=== PATIENT | male | born 1940 | race Caucasian/White ===

== ENCOUNTER → 2019-04-11 | Outpatient (CLI) | payer MEDICARE, OTHER ==
[~2019-04-11] MED LIST: AMLO10 PO; ASPI325EC PO; ASPIR 8181 MG PO; ATEN50; ATEN50 PO; ATOR40TA; BENA20 PO; BENAML20/5; Bumetanide1 MG PO; CELE200; CELE200 PO; CHOL10002 PO; DOCU100 PO; ENOX40I SC; HYDCHL25 PO; HYDMOR2 PO; LANS30EC; MULTIVITAMIN; NEBI10 PO; OMEP20ER PO; POTASSIUM CITR10 MEQ PO; ROSU10TA PO; VITAMIN D-32000 UNIT PO
[2019-04-11 15:40] LABS: Source, Urine Clean Catch
[2019-04-11 19:08] LABS: Bilirubin, Urine Neg (Neg); Blood, Urine 1+ (Neg); Glucose Qualitative, Urine Neg (Neg); Ketones, Urine Neg (Neg); Leukocyte Esterase, Urine Neg (Neg); Nitrite, Urine Neg (Neg); Protein, Urine 3+ (Neg); Urobilinogen, Urine NORM (Normal)
[2019-04-11 19:18] LABS: Appearance, Urine Clear (Clear); Color, Urine Yellow (P-Yellow)
[2019-04-11 19:21] LABS: Bacteria Rare /hpf; Red Blood Cells, Urine 0-2 /hpf (0-2); Squamous Epithelial Cells Rare /hpf (Few); White Blood Cells, Urine 0-2 /hpf (0-5)
== END | disposition home or self-care (01) ==
LOC: LAB 15:38 → LAB SHORT 15:38
PROVIDERS: Internal Medicine
DX: N39.0 Urinary tract infection, site not specified (principal)
CPT/HCPCS: 81001

== ENCOUNTER 2020-10-09 08:53 | Day surgery (SDC) | payer MEDICARE, OTHER ==
[~2020-10-09] VITALS: Ht 177.8 cm; Wt 92.0 kg
[~2020-10-09 08:53] MED LIST changes: +AMLODIPINE-BEN1 EAC5 PO; +Aspir 8181 MG PO; +BUME1 PO; +POTCIT10 PO; +VITAMIN D325 MC3 PO
--- NOTE | 2020-10-09 09:19 | NUR ---
10/09/20 0919 Westley Alvarenga CALL LIGHT WITHIN REACH
== END 2020-10-09 10:23 | disposition home or self-care (01) ==
LOC: ORSCSDS 08:53
PROVIDERS: Ophthalmology
PROC: 08RJ3JZ Replacement of Right Lens with Synthetic Substitute, Percutaneous Approach (ICD-10-PCS; principal; 2020-10-09 10:00)
DX: H25.11 Age-related nuclear cataract, right eye (principal); K21.9 Gastro-esophageal reflux disease without esophagitis; I10 Essential (primary) hypertension; Z87.891 Personal history of nicotine dependence; Z79.899 Other long term (current) drug therapy
CPT/HCPCS: J2001; J2250; J3010; J3301; J7040; V2632

== ENCOUNTER 2020-12-11 08:45 | Day surgery (SDC) | payer MEDICARE, OTHER ==
[~2020-12-11] VITALS: Ht 177.8 cm; Wt 93.8 kg
== END 2020-12-11 10:36 | disposition home or self-care (01) ==
LOC: ORSCSDS 08:45
PROVIDERS: Ophthalmology
PROC: 08RK3JZ Replacement of Left Lens with Synthetic Substitute, Percutaneous Approach (ICD-10-PCS; principal; 2020-12-11 10:00)
DX: H25.12 Age-related nuclear cataract, left eye (principal); I10 Essential (primary) hypertension; Z79.82 Long term (current) use of aspirin; Z79.899 Other long term (current) drug therapy
CPT/HCPCS: J2001; J2250; J3010; J3301; J7040; V2632

== ENCOUNTER 2022-12-02 05:52 | Day surgery (SDC) | payer MEDICARE, OTHER ==
[2022-12-02] VITALS (21 sets, daily range): BP systolic 101–153; BP diastolic 65–104
[~2022-12-02] VITALS: Ht 169 cm; Wt 85.8 kg
[~2022-12-02 05:52] MED LIST changes: +AMLODIPINE BES2.5 MG PO; +BENAZEPRIL HCL40 M1 PO; +CELE100 PO
[2022-12-02] MEDS ORDERED: HYDROCODONE-AC1 EA19 PO (06:57)
--- NOTE | 2022-12-02 07:43 | NUR ---
History, Chart, Medications and Allergies reviewed before start of procedure. Pre-Op teaching done. Pt verbalizes understanding. Patient confirms NPO status and agrees with scheduled surgery. Patient reports completing Chlorhexadine shower X2 prior to admission to hospital. Lungs clear T/O to Auscultation. Surgical site prepped with 2% Chlorhexidine cloth wipe. Patient States Post-Procedure ride home has been arranged.
--- NOTE | 2022-12-02 08:38 | NUR ---
12/02/22 0838 Liz Gaspar PRIOR TO ARRIVING IN THE OR PATIENT RECEIVED VANCO 1GM IV IN THE PREOP SETTING.
--- NOTE | 2022-12-02 14:26 | NUR ---
Pt. is awake and sitting in a recliner when he welcomes my visit. Pt. is pleasant and rapport is quickly established. Facilitated a life review. Pt. verbalizes much family loss in the past 4 years. Listen with empathy and a calming presence. Bereavement support is given. Pt. displays some evidence of emotion. Prayed for the Pt. Pt. verbalized gratitude for the spiritual care visit.
--- NOTE | 2022-12-02 15:07 | NUR ---
ADMIT/SHIFT SUMMARY NEW ADMIT TO UNIT FROM PACU POD [address] NUR. ALERT, ORIENTED, PLEASANT, COOPERATIVE, [place]. POST OP VSS, SOME BRADYCARDIA NOTED AT TIMES INTO 40'S, ASYMPTOMATIC. TOLERATING REG LUNCH AND FLUIDS. PAIN CONTROLLED WITH SCHEDULED MEDS, RATES PAIN 2/10 AT THIS TIME. AMBULATES SBA WITH FWW AND GAIT BELT IN HALLS. WORKED WITH PHYSICAL THERAPY. GAUZE AND TAPE DRESSING TO RIGHT HIP AND LOWER THIGH C/D/I. REPORT GIVEN TO IRAM DANIEL RN.
--- NOTE | 2022-12-02 15:14 | NUR ---
THIS NURSE IS TAKING OVER CARE FROM PAU CALDERON. AFTER REPORT THIS NURSE HAD NO FURTHER QUESTIONS AT THIS TIME.
--- NOTE | 2022-12-02 19:47 | NUR ---
EDUCATION PATIENT EDUCATED ABOUT THE DANGERS OF AMBULATING INDEPENDENTLY POST OP, DUE TO THE PATIENT AMBULATING INDEPENDENTLY. THE PATIENT VERBALIZED MISUNDERSTANDING AND UNWILLINGNESS TO COMPLY, BUT THEN VERBALIZED UNDERSTANDING THAT THERE ARE LIMITATION POST OP IN THE HOSPITAL FOR SAFETY. PATIENT REEDUCATED ABOUT CALL LIGHT USE AND HOW TO CALL FOR ASSITANCE IF THE BATHROOM IS NEEDED, OR OTHER NEEDS. PATIENT EDUCATED ABOUT RISK OF REQUIRING ANOTHER SURGERY TO REPAIR HIP IF A FALL OCCURS. WALKER MOVED OUT OF PATIENT REACH AT THIS TIME AND CALL LIGHT PLACED NEXT TO THE PATIENT.
[2022-12-03 04:53] VITALS: BP 117/62
--- NOTE | 2022-12-03 04:55 | NUR ---
SHIFT SUMMARY POD 1 R POSTERIOR SACHIN. NO ACUTE CHNAGES OVERNIGHT. VS WNL FOR PT. GAUZE DRESSING C/D/I. TOLERATING ORALS. PT AMBULATES WITH FWW c SBA, PT CAN BE ENTHUSIASTIC AT TIMES WHEN AMBULATING. PT SLEPT THROUGHOUT MOST OF THE NIGHT. ANTICIPATED DISCHARGE LATER TODAY. CALL LIGHT WITHIN REACH, BED IN LOWEST POSITION, WILL REPORT TO DAY RN.
[2022-12-03 05:06] LABS: BASOPHILS ABSOLUTE AUTO 0.02 K/mm3 (0.00-0.23); BASOPHILS PERCENT AUTO 0 % (0-2); EOSINOPHILS PERCENT AUTO 0 % (0-6); Hematocrit 34.3 % (37.0-53.0); Hemoglobin 11.4 g/dL (13.5-17.5); IMMATURE GRAN ABSOLUTE AUTO 0.06 K/mm3 (0.00-0.10); IMMATURE GRAN PERCENT AUTO 1 % (0-1); LYMPHOCYTES ABSOLUTE AUTO 1.44 K/mm3 (0.84-5.20); LYMPHOCYTES PERCENT AUTO 12 % (21-46); MONOCYTES ABSOLUTE AUTO 1.47 K/mm3 (0.16-1.47); MONOCYTES PERCENT AUTO 12 % (4-13); Mean Corpuscular HGB 29.4 pg (26.0-34.0); Mean Corpuscular HGB Conc 33.2 g/dL (31.5-36.5); Mean Corpuscular Volume 88 fL (80-100); Mean Platelet Volume 9.8 fL (9.1-12.4); NEUTROPHILS ABSOLUTE AUTO 9.09 K/mm3 (1.96-9.15); NEUTROPHILS PERCENT AUTO 75 % (41-73); Platelet Count 185 K/mm3 (150-400); RDW Coefficient Variation 13.2 % (11.7-14.2); RDW Standard Deviation 43.1 fL (35.1-46.3); Red Blood Cell Count 3.88 M/mm3 (4.30-5.90); White Blood Cell Count 12.08 K/mm3 (4.00-11.30)
[2022-12-03 05:39] LABS: Bun/Creatinine Ratio 19.4 (12.0-20.0); Calcium, Blood 8.4 mg/dL (8.5-10.1); Creatinine, Blood 1.08 mg/dL (0.60-1.20); Magnesium, Blood 1.8 mg/dL (1.6-2.4); Potassium, Blood 3.9 mmol/L (3.5-5.5)
[2022-12-03 07:33] VITALS: BP 125/78
[2022-12-03 09:08] VITALS: BP 150/86
[2022-12-03] MEDS ORDERED: Aspir 8181 MG PO (10:37)
[2022-12-03] MEDS ORDERED: SULTRIDS PO (10:38)
[2022-12-03] MEDS ORDERED: PROM25 PO (10:38)
--- NOTE | 2022-12-03 11:43 | NUR ---
DISCHARGE SUMMARY POD1 R TOTAL HIP- AQUACEL DRESSINGS X3 C/D/I. AMBULATING WELL W/ SBA FWW AND GB. VITAL SIGNS STABLE. VOIDING WELL. TOLERATING PO INTAKE. PAIN MANAGED W/ PO PAIN MEDICATION. PT/OT AGREEABLE TO DISCHARGE PATIENT. WRITTEN AND VERBAL DISCHARGE INSTRUCTIONS GIVEN. IV REMOVED, CATHETER INTACT NO REDNESS. PATIENT BELONGINGS GATHERED AND PT WHEELED OUT W/ FAMILY MEMBER TO PERSONAL VEHICLE.
== END 2022-12-03 11:31 | disposition home or self-care (01) ==
LOC: ORSCMMR 05:52 → ORD 07:30 → ORSCMMR 07:30 → SURS 11:15 → ORSCMMR 12-03 11:31 → SURS 12-03 11:31 → ORD 12-30 07:30
PROVIDERS: Orthopaedic Surgery
PROC: 0SR90JA Replacement of Right Hip Joint with Synthetic Substitute, Uncemented, Open Approach (ICD-10-PCS; principal; 2022-12-02 07:30)
DX: M16.11 Unilateral primary osteoarthritis, right hip (principal); Z96.651 Presence of right artificial knee joint; I10 Essential (primary) hypertension; Z79.899 Other long term (current) drug therapy; Z87.891 Personal history of nicotine dependence; Z79.82 Long term (current) use of aspirin
CPT/HCPCS: 36415; 72170; 80048; 83735; 85025; 97110; 97116; 97162; 97166; 97535; A9270; C1713; C1776; J0171; J0690; J0735; J1100; J1885; J2371; J2405; J2704; J2795; J3010; J3370; J7050; J7120